=== PATIENT | female | born 1950 | race Caucasian/White ===

== ENCOUNTER 2017-12-09 01:31 | Inpatient (IN) | payer OTHER, MEDICARE ==
[~2017-12-09] VITALS: Ht 144.8 cm; Wt 113.9 kg
[~2017-12-09 01:31] MED LIST: ARTIFICIAL TEA1 EACH; BISCOLAX10 M1; CALCIUM + VITA1 EAC1; DULCOLAX5 M1; FERROUS SULFAT325 M3 PO; FEXMID7.5 MG PO; FIBERCON625 M1; FLEET ENEMA133 ML RC; FUROSEMIDE20 M1 PO; HYDROCODON-ACE1 EAC2 PO; KLOR-CON 1010 ME1 PO; LEVOTHYROXINE75 MCG PO; LINZESS145 MC1 PO; LISINOPRIL5 M1 PO; LOVENOX40 MG/0.1 SC; LYRICA50 M1 PO; MECLIZINE HCL25 MG; MILK OF MA400 MG/52 PO; MULTIVITAMINS1 EAC8; NALTREXONE HCL50 M1 PO; OMEGA 3-6-9 11200 MG; OXYMORPHONE HCL10 MG PO; PAXIL30 M1 PO; RANITIDINE HCL300 M1 PO; SENNA8.6 M3; TRAZODONE HCL50 M1 PO; TYLENOL325 M1; VITAMIN D31000 UNI2 PO; VOLTAREN100 GM
[2017-12-09 07:30] LABS: ABSOLUTE BASOPHIL COUNT 0.1 /CUMM (0.0-0.2); ABSOLUTE EOSINOPHIL COUNT 0.4 /CUMM (0.0-0.7); ABSOLUTE GRANULOCYTE CT 5.1 /CUMM (1.4-6.5); ABSOLUTE LYMPH COUNT 1.8 /CUMM (1.2-3.4); ABSOLUTE MONOCYTE COUNT 0.5 /CUMM (0.10-0.60); BASOPHIL % 0.7 % (0.0-2.0); EOSINOPHIL % 4.9 % (0-5); HEMATOCRIT 38.8 % (37-47); MEAN CORPUSCULAR HGB 28.3 PG (27.0-31.0); MEAN CORPUSCULAR HGB CONC 33.2 G/DL (33.0-37.0); MEAN CORPUSCULAR VOLUME 85.3 FL (81.0-99.0); MEAN PLATELET VOLUME 7.8 FL (7.4-10.4); PLATELET COUNT 269 /CUMM (130-400); RBC DISTRIBUTION WIDTH 14.2 % (11.5-14.5); RED BLOOD CELL CT 4.55 /CUMM (4.20-5.40); WHITE BLOOD CELL COUNT 7.9 /CUMM (4.8-10.8)
--- NOTE | 2017-12-09 07:42 | RADIOLOGY REPORT ---
EXAMINATION: XR PORTABLE CHEST CLINICAL INFORMATION: Preoperative bariatric surgery COMPARISON: 04/06/2014 TECHNIQUE: Portable frontal view of the chest was obtained. FINDINGS: Improved lung volumes. No focal consolidation or mass. Normal pulmonary vascularity. No pleural effusion or pneumothorax. Normal heart size. Regional skeleton intact. IMPRESSION: No acute pulmonary disease.
--- NOTE | 2017-12-09 12:05 | Operative Report ---
Operative/Inv Procedure Report Surgery Date: 12/09/17 Name of Procedure: Laparoscopic Sleeve Gastrectomy, Laparoscopic Hiatal hernia repair Pre-Operative Diagnosis: Morbid Obesity BMI-50, JOAN, HTN, Oseoarthritis, Depression, Hypothyroid Post-Operative Diagnosis: Morbid Obesity BMI-50, JOAN, HTN, Oseoarthritis, Depression, Hypothyroid, Hiatal hernia Estimated Blood Loss: less than 50ml Surgeon/Game Technician: Eduardo Swanson DO Anesthesia: general endotracheal tube IV Fluids: 1000 cc Drains: None Specimens: Stomach Complications: None Condition: Stable Operative Indication: This is a 67-year-old female that presented to the office for workup for bariatric surgery. After appropriate workup was completed I discussed with the patient the band, the sleeve, and the gastric bypass. The patient chose to undergo a sleeve gastrectomy. All risks including but not limited to bleeding, infection, leak, stricture, injury to surrounding bowel/esophagus/stomach/liver/ spleen, long-term reflux, DVT/PE, and mortality of 08/999 patients were discussed in detail. The patient understood everything and decided to proceed. Operative/Procedure Note Note: The patient was brought to the operating room and placed on the operating room table in supine position. Venodyne stockings were placed and adequate general endotracheal anesthesia was obtained. The patient was prepped and draped in standard surgical fashion. Began the procedure by making a 2 cm transverse incision supraumbilically and slightly to the left of the midline. Then using a 12 mm clear Visiport and a 10 mm 0 laparoscope, the abdominal cavity was accessed. Great care was taken to go through the anterior rectus sheath, the posterior rectus sheath, and through the peritoneum. Once we entered the peritoneum the abdominal cavity was insufflated to 15 mmHg. Upon initial examination some midline adhesions were noted from prior open cholecystectomy. 5 mm port was placed in left lateral position, and then all the midline adhesions were taken down using Harmonic scalpel maintaining hemostasis until there was adequate room for subsequent port placement. Accessory trocars were placed, 5 mm in the epigastrium for the Henna liver retractor. The retractor was inserted and the liver was retracted anteriorly exposing the hiatus, small hiatal hernia was seen. 5 mm ports were placed in the right and left upper quadrant, and a 15 mm right lateral port. Began the procedure by mobilizing the greater curvature of the stomach approximately 7 cm from the pylorus. Once the retrogastric space was reached the whole greater curvature was mobilized maintaining hemostasis using Harmonic scalpel. Full hiatal dissection was performed, a small hiatal hernia was seen (fatty tissue was herniating posteriorly. The left zora of the diaphragm was dissected away from the esophagus, reducing the hernia sac. We then brought our attention to the right zora, the pars flaccida was opened until the right zora was clearly visualized. Following this the right zora was dissected away from the esophagus as well and the esophagus was circumferentially dissected out of the chest. At the completion of dissection the esophagus was in the abdominal cavity for about 2-3 cm. The esophagus was retracted anteriorly and the hiatus was closed using 2-0 Tycron suture. At the completion of the closure there was ample room for the esophagus and the hiatus was adequately closed. Posterior adhesions were taken down using Harmonic scalpel as well. Once the stomach was adequately mobilized a 38 Uzbek bougie was inserted and placed along the lesser curvature of the stomach. Once the bougie was in the appropriate position will began creating our sleeve, two 60 mm black staple loads with seamguard followed by two 60 mm purple staple loads with seamguard as well, and finished with a 45 mm plain purple load. Great care was taken to leave ample room at the incisura angularis, to prevent any twisting or kinking of the sleeve, to stay lateral to the esophagogastric fat pad, and to do a full fundal excision. At the completion of the staple line the staple line was examined, it appeared intact and no obvious bleeding was noted. The bougie was removed, the sleeve was lying nicely without any twisting or kinking. The resected stomach was removed through the right lateral port site. The port and the left upper quadrant were irrigated until clear. All ports were removed under direct visualization no obvious bleeding was noted. The 15 mm port site fascia was closed using 0 Vicryl suture. The skin was closed using 4-0 Monocryl. Steri-Strips and dressings were placed. The patient was successfully extubated and transferred to the recovery room in stable condition. The patient tolerated the procedure well with no complications. Findings: 2-3 cm hiatal hernia, 38 Fr bougie CC: Rashawn Gomez MD
--- NOTE | 2017-12-09 12:18 | Admission Core Measures ---
Acute Coronary Syndrome (CM) ACS Core Measures Acute Coronary Syndrome Diagnosis No Congestive Heart Failure (NEW) CHF Core Measures Congestive Heart Failure Diagnosis No Cerebrovascular Accident (NEW) CVA Core Measures CVA/TIA Diagnosis No Venous Thromboembolism VTE Core Jamila (View Protocol) VTE Risk Factors Surgery No Mechanical VTE Prophylaxis d/t N/A MechProphylax Ordered No VTE Pharm Prophylaxis d/t NA PharmProphylax ordered Problem List As ranked by this Provider includes Assessment & Plan 1. History of repair of hiatal hernia 2. S/P laparoscopic sleeve gastrectomy 3. Lupus 4. Hypothyroidism 5. GERD (gastroesophageal reflux disease) 6. Hypertension 7. Morbid obesity HOME MEDS Home Med List Cholecalciferol (Vitamin D3) 1,000 UNIT TABLET 5 TAB PO DAILY SUPPLEMENT ( Reported) Cyclobenzaprine HCl (Fexmid) 7.5 MG TABLET 1 TAB PO BID PAIN (Reported) Enoxaparin Sodium (Lovenox) 40 MG/0.4 ML SYRINGE 0.4 ML SC DAILY ANTICOAGULATION (Reported) Ferrous Sulfate 325 MG (65 MG IRON) TABLET 1 TAB PO DAILY SUPPLEMENT ( Reported) Furosemide 20 MG TABLET 1 TAB PO DAILY DIURETIC (Reported) Hydrocodone/Acetaminophen (Hydrocodon-Acetaminophen 5-325) 5 MG-325 MG TABLET 1-2 TAB PO Q4-6 PRN PRN PAIN (Reported) Levothyroxine Sodium 75 MCG TABLET 1 TAB PO DAILY REPLACEMENT (Reported) Linaclotide (Linzess) 145 MCG CAPSULE 1 CAP PO DAILY CONSTIPATION (Reported) Lisinopril 5 MG TABLET 1 TAB PO DAILY HTN (Reported) Magnesium Hydroxide (Milk Of Magnesia) 400 MG/5 ML ORAL.SUSP 5 ML PO DAILY PREOP LAXATIVE (Reported) Na Phos,M-B/Na Phos,Di-Ba (Fleet Enema) 19 GRAM-7 GRAM/118 ML ENEMA 1 E RC ONCE CONSTIPATION (Reported) Naltrexone HCl 50 MG TABLET 1 TAB PO DAILY RESPIRATORY DEPRESSION (Reported) Oxymorphone HCl (Oxymorphone HCl ER) 10 MG TAB.ER.12H 1 TAB PO BID PAIN ( Reported) Paroxetine HCl (Paxil) 30 MG TABLET 1 TAB PO DAILY DEPRESSION (Reported) Potassium Chloride (Klor-Con 10) 10 MEQ TABLET.ER 1 TAB PO DAILY SUPPLEMENT ( Reported) Pregabalin (Lyrica) 50 MG CAPSULE 1 CAP PO TID LUPUS (Reported) Ranitidine HCl 300 MG TABLET 1 TAB PO QPM GERD (Reported) Trazodone HCl 50 MG TABLET 0.5 TAB PO QPM SLEEP (Reported)
--- NOTE | 2017-12-09 12:24 | Surg Short-stay <48hrs Dis Sum ---
Visit Information Visit Dates Admission Date: 12/09/17 Discharge Date: 12/11/17 Surgical Short Stay DC Summary Admission Diagnosis: Morbid Obesity BMI-50, JOAN, HTN, Oseoarthritis, Depression, Hypothyroid Final Diagnosis: Morbid Obesity BMI-50, JOAN, HTN, Oseoarthritis, Depression, Hypothyroid, Hiatal hernia Procedure(s): Surgery Date: 12/09/17 Name of Procedure: Laparoscopic Sleeve Gastrectomy, Laparoscopic Hiatal hernia repair Summary/Significant Findings: Electively scheduled laparoscopic sleeve gastrectomy, laparoscopic hiatal hernia repair on 12/09/17 by for history of morbid obesity (BMI-50), JOAN, HTN , Oseoarthritis, Depression, Hypothyroid, and hiatal hernia appreciated during surgery. Started on a stage 1 bariatric diet post-operatively. Upper gi study on POD#1 to rule out leak and obstruction. Pain control transitioned from iv to oral medication as able. Lovenox teaching done prior to [facility], which should be continued for one week post-op. Her lisinopril has been held intentionally, with recommendations to follow up with her PCP for blood pressure check. Her lasix can be continued, but may eventually be stopped. Protonix will be continued for 3 months following surgery, and may then be stopped. She will likely not require ranitidine while she has been started on a PPI, and given her symptoms will likely resolved post-sleeve / hiatal hernia repair. Condition at Discharge: stable Discharge Disposition: home or self care Discharge instructions provided to patient/family: Yes Post discharge follow-up plan: one week follow up with lovenox teaching done prior to discharge home Copies to: Rashawn Gomez MD
--- NOTE | 2017-12-09 12:29 | Patient Discharge Instructions ---
Discharge Instructions General Discharge Information You were seen/treated for: Morbid Obesity BMI-50, JOAN, HTN, Oseoarthritis, Depression, Hypothyroid, Hiatal hernia You had these procedures: Surgery Date: 12/09/17 Name of Procedure: Laparoscopic Sleeve Gastrectomy, Laparoscopic Hiatal hernia repair Watch for these problems: fever>101.3, increased pain, redness/swelling/drainage, dizziness, shortness of breath, chest pains, dizziness No bath, but you may shower: Yes Other wound care: ok to remove outer dressings. leave white steri strips in place. keep incisions clean & dry. Diet Continue normal diet: Yes Recommended Diet: Bariatric Additional DIET Information: weekly bariatric stage diet advancements as tolerated, as directed Activity Full Activity/No Limits: No Activity Self Limited: Yes Pounds, do NOT lift more than: 10 Other activity limits: no heavy lifting>10 lbs. no strenuous activity. Acute Coronary Syndrome Inclusion Criteria At DC or during hospital stay patient has or had the following: ACS DIAGNOSIS No Discharge Core Measures Meds if any: Prescribed or Continued at Discharge Meds if any: NOT Prescribed or Continued at Discharge Congestive Heart Failure Inclusion Criteria At DC or during hospital stay patient has or had the following: CHF DIAGNOSIS No Discharge Core Measures Meds if any: Prescribed or Continued at Discharge Meds if any: NOT Prescribed or Continued at Discharge Cerebrovascular accident Inclusion Criteria At DC or during hospital stay patient has or had the following: CVA/TIA Diagnosis No Discharge Core Measures Meds if any: Prescribed or Continued at Discharge Meds if any: NOT Prescribed or Continued at Discharge Venous thromboembolism Inclusion Criteria VTE Diagnosis No VTE Type NONE VTE Confirmed by (Test) NONE Discharge Core Measures - Per Current guidelines, there needs to be overlap - treatment for the first 5 days of Warfarin therapy. - If discharged on Warfarin prior to 5 days of - overlap therapy, the patient will need to be - assessed for post discharge needs including - *Post discharge parental anticoagulation - *Warfarin and/or parental anticoagulation education - *Follow up date to check INR post discharge At least 5 days overlap therapy as Inpatient No Meds if any: Prescribed or Continued at Discharge Note: Overlap Therapy is Warfarin and Anticoagulant Meds if any: NOT Prescribed or Continued at Discharge
--- NOTE | 2017-12-09 16:26 | PN- Bariatrics ---
Subjective Subjective: POC gas pain. no n/v. no oob as she is in an electric wc at baseline due to arthritis. no sob. +void. no po yet Objective Vital Signs and I&Os see emr Physical Exam: gen- nad card- s1s2 rrr pulm- ctab abd- incisions dressed, cdi. upper abd ttp at incisions. obese, soft, nd. ext- obese, calves soft nt, alps on. Assessment/Plan Assessment/Plan A- POD0 sp lap sleeve gastrectomy with hh repair, due to MO BMI>50, HH, JOAN, HTN , os, dep, hypothyroid, no oob as pt states she is unable to ambulate at baseline and uses electric wheelchair, with appropriate postop pain, otherwise stable. P- oob- pt eval. prn pain meds, gas meds home meds- hold lasix & lisinopril tuan stg 1 diet now, then npo p pm. possible ugi study in am, tbd ancef [id number] postop hep sq, alps lovenox teaching for home dc planning will dw attending Core Measures Venous Thromboembolism VTE Risk Factors Surgery No Mechanical VTE Prophylaxis d/t N/A MechProphylax Ordered No VTE Pharm Prophylaxis d/t NA PharmProphylax ordered
[2017-12-09 17:00] VITALS: BP 110/58
[2017-12-09 21:17] VITALS: BP 120/58
[2017-12-10 06:08] VITALS: BP 114/62
[2017-12-10 08:17] LABS: ABSOLUTE BASOPHIL COUNT 0 /CUMM (0.0-0.2); ABSOLUTE EOSINOPHIL COUNT 0 /CUMM (0.0-0.7); ABSOLUTE GRANULOCYTE CT 8.4 /CUMM (1.4-6.5); ABSOLUTE LYMPH COUNT 1.7 /CUMM (1.2-3.4); ABSOLUTE MONOCYTE COUNT 0.9 /CUMM (0.10-0.60); BASOPHIL % 0.2 % (0.0-2.0); EOSINOPHIL % 0.1 % (0-5); GRANULOCYTE % 76.7 % (42.2-75.2); HEMATOCRIT 34.1 % (37-47); MEAN CORPUSCULAR HGB 28.6 PG (27.0-31.0); MEAN CORPUSCULAR HGB CONC 33.5 G/DL (33.0-37.0); MEAN CORPUSCULAR VOLUME 85.5 FL (81.0-99.0); MEAN PLATELET VOLUME 8.8 FL (7.4-10.4); PLATELET COUNT 270 /CUMM (130-400); RBC DISTRIBUTION WIDTH 14.2 % (11.5-14.5); RED BLOOD CELL CT 3.99 /CUMM (4.20-5.40); WHITE BLOOD CELL COUNT 10.9 /CUMM (4.8-10.8)
--- NOTE | 2017-12-10 10:48 | PN- Bariatrics ---
See Addendum Subjective Subjective: Patient reports nausea with clears last night and one episode of heme-postive emesis after she returned from UGI study. Pain is currently controlled. Reports passing flatus. Denies having a BM since thursday. Is requesting a fleet enema. Has a bed waiting for her to return at [facility] per PT once stable for discharge. Objective Vital Signs and I&Os Vital Signs Date Time Temp Pulse Resp B/P B/P Pulse O2 O2 Flow FiO2 Mean Ox Delivery Rate 12/10 0508 98.2 62 22 114/62 100 Nasal 1.5L Cannula 12/10 0600 98 Nasal 2.0L Cannula 12/10 0048 98 CPAP 2.0L 12/10 0000 98 Nasal 2.0L Cannula 12/10 0000 98 Nasal 2.0L Cannula 12/09 2200 CPAP 12/09 2117 98.5 80 20 120/58 98 Room Air 12/09 2104 Room Air Room Air 12/09 1800 96 Room Air 12/09 1700 98.1 76 20 110/58 97 Room Air 12/09 1625 98 Room Air Intake & Output 12/10 1600 12/10 0800 12/10 0000 12/09 1600 12/09 0800 12/09 0000 Intake Total 765 980 Output Total 900 Balance 765 80 Intake, IV 750 620 Intake, Oral 15 360 Output, Urine 900 Patient 252 lb 240 lb Weight Weight Bed scale Reported by Patient Measurement Method Physical Exam: Gen - awake an alert in nad Cardiac - S1S2 noted Lungs - CTAB Abd - soft, obese, 6 lap sites noted, c/d/i, bowel sounds normoactive, appropriately tender adrian-incisionally, no rebound or guarding noted Ext - alps in place, no edema or calf tenderness B/L Current Medications: Current Medications Sig/David Start time Last Medication Dose Route Stop Time Status Admin Acetaminophen 1,000 MG Q6 12/09 1800 AC 12/10 N/A 1 UNIT IV 12/10 1214 0523 Artificial Tears 2 GTT TID PRN 12/09 1215 AC OPH Cefazolin Sodium 2,000 MG IQ8 12/09 1800 CAN IV 12/10 0001 Cefazolin Sodium 2 GM Q8H 12/09 1800 DC 12/10 N/A 1 UNIT IV 12/10 0229 0201 Cyclobenzaprine HCl 7.5 MG BID 12/09 2200 AC 12/09 PO 2246 Dexamethasone 8 MG ONCE PRN 12/09 1630 AC IV PUSH Dextrose/Sodium 1,000 ML Q10H 12/09 1630 AC 12/10 Chloride IV 0211 Diclofenac Sodium 1 HAMZAH 4 TIMES/DAY PRN 12/09 1215 AC TOP Heparin Sodium 5,000 UNIT Q8 12/09 2200 AC 12/10 (Porcine) SC 0523 Hydrocodone Bitart/ 15 ML Q6P PRN 12/09 1630 AC 12/10 Acetaminophen PO 0209 Levothyroxine Sodium 0.075 MG DAILY AC 12/10 0700 AC 12/10 PO 0523 Morphine Sulfate 2 MG Q4-6 PRN PRN 12/09 1630 AC 12/10 IV 0019 Ondansetron HCl 4 MG Q6P PRN 12/10 0930 AC 12/10 IV 0935 Ondansetron HCl 4 MG .STK-MED ONE 12/09 1328 DC IM 12/09 1329 Oxycodone HCl 20 MG Q12 12/09 2200 AC 12/10 PO 0935 Pantoprazole Sodium 40 MG DAILY 12/10 1000 AC IV Pregabalin 50 MG TID 12/09 1600 AC 12/10 PO 0935 Simethicone 40 MG Q4P PRN 12/10 0930 AC PO Trazodone HCl 25 MG AT BEDTIME PRN 12/09 1215 AC PO Results Last 48 Hours of Labs: Laboratory Tests 12/10 12/09 0610 0715 Chemistry Sodium (137 - 145 mmol/L) 140 140 Potassium (3.5 - 5.1 mmol/L) 3.7 4.1 Chloride (98 - 107 mmol/L) 102 100 Carbon Dioxide (22 - 30 mmol/L) 28 29 Anion Gap (5 - 16) 10 11 BUN (7 - 17 mg/dL) 11 13 Creatinine (0.5 - 1.0 mg/dL) 0.4 L 0.4 L Estimated GFR (>60 ml/min) > 60 > 60 BUN/Creatinine Ratio (7 - 25 %) 27.5 H 32.5 H Glucose (65 - 99 mg/dL) 129 H 74 Calcium (8.4 - 10.2 mg/dL) 9.1 Magnesium (1.6 - 2.3 mg/dL) 2.0 Hematology CBC w Diff NO MAN DIFF REQ NO MAN DIFF REQ WBC (4.8 - 10.8 /CUMM) 10.9 H 7.9 RBC (4.20 - 5.40 /CUMM) 3.99 L 4.55 Hgb (12.0 - 16.0 G/DL) 11.4 L 12.9 Hct (37 - 47 %) 34.1 L 38.8 MCV (81.0 - 99.0 FL) 85.5 85.3 MCH (27.0 - 31.0 PG) 28.6 28.3 MCHC (33.0 - 37.0 G/DL) 33.5 33.2 RDW (11.5 - 14.5 %) 14.2 14.2 Plt Count (130 - 400 /CUMM) 270 269 MPV (7.4 - 10.4 FL) 8.8 7.8 Gran % (42.2 - 75.2 %) 76.7 H 65.0 Lymphocytes % (20.5 - 51.1 %) 15.2 L 22.4 Monocytes % (1.7 - 9.3 %) 7.8 7.0 Eosinophils % (0 - 5 %) 0.1 4.9 Basophils % (0.0 - 2.0 %) 0.2 0.7 Absolute Granulocytes (1.4 - 6.5 /CUMM) 8.4 H 5.1 Absolute Lymphocytes (1.2 - 3.4 /CUMM) 1.7 1.8 Absolute Monocytes (0.10 - 0.60 /CUMM) 0.9 H 0.5 Absolute Eosinophils (0.0 - 0.7 /CUMM) 0 0.4 Absolute Basophils (0.0 - 0.2 /CUMM) 0 0.1 Assessment/Plan Assessment/Plan 67 nonambulatory, wheel-chair bound female who is POD 1 s/p lap sleeve gastrectomy with hh repair with nausea, one episode of blood tinged emesis, which was heme postive, expected postoperatively Keep NPO, IVF Await UGI Pain/antiemetics prn Cont to hold lisinprol and lasix DVT ppx - alps, hsq Lovenox teaching for home Fleet enema ordered [facility]48 [facility] Will d/w Dr. Swanson Core Measures Venous Thromboembolism VTE Risk Factors Surgery No Mechanical VTE Prophylaxis d/t N/A MechProphylax Ordered No VTE Pharm Prophylaxis d/t NA PharmProphylax ordered
--- NOTE | 2017-12-10 12:26 | RADIOLOGY REPORT ---
EXAMINATION: FLUOROSCOPY UPPER GI WITH GASTROGRAFIN WITH KUB CLINICAL INFORMATION: 1 day status post sleeve gastrectomy and hiatal hernia repair. Postoperative evaluation. Rule out leak/obstruction. COMPARISON: None. TECHNIQUE: A preliminary robot programmer view of the abdomen was performed. A limited Gastrografin upper GI study was performed using 30 ml of Gastroview with the patient in the semiupright position. Multiple (6) spot films and 2 cine fluoroscopy runs were acquired. FINDINGS: The preliminary robot programmer view of the abdomen demonstrates postsurgical suture line in the epigastric region. Normal bowel gas pattern is seen without abnormal bowel distention noted. Right upper quadrant jaja are in place from prior cholecystectomy. Moderate degenerative changes are seen throughout the thoracolumbar spine. Esophageal distensibility and motility is suboptimally assessed, since the patient was only able to swallow the contrast in small sips rather than as a continuous oral bolus. The GE junction is located below the level of the diaphragm and no GE reflux seen. The remnant gastric pouch is normal with no abnormal distention or contrast leak seen. There is prompt emptying of contrast into the duodenum. There is a small duodenal diverticulum seen arising from the proximal first portion of the duodenal C-sweep. The duodenum is otherwise unremarkable in appearance. FLUOROSCOPY TIME: 1.6 minutes. IMPRESSION: 1. Esophageal distensibility and motility not adequately assessed. 2. No evidence of contrast leak or gastric outlet obstruction status post gastric sleeve procedure. 3. Small duodenal diverticulum seen arising from the proximal portion of the first portion of the duodenal C-sweep.
[2017-12-10 14:43] VITALS: BP 100/62
[2017-12-10 21:22] VITALS: BP 136/66
[2017-12-11 06:07] VITALS: BP 132/64
--- NOTE | 2017-12-11 07:25 | PN- Bariatrics ---
Subjective Subjective: Reports some ongoing nausea, but tolerating stage 1 diet. Passing flatus. Wheelchair bound at baseline. She hasn't been out of bed. Denies dizziness. No shortness of breath. No chest pains. "I'm tired". Objective Vital Signs and I&Os Vital Signs Date Time Temp Pulse Resp B/P B/P Pulse O2 O2 Flow FiO2 Mean Ox Delivery Rate 12/11 0607 98.1 55 20 132/64 94 Nasal 2.0L Cannula 12/11 06 CPAP 12/10 2199 Room Air 12/10 2122 97.7 61 19 136/66 95 Room Air 12/10 1600 94 Room Air 12/10 1443 97.4 61 20 100/62 94 12/10 1400 94 Room Air Intake & Output 12/11 0800 12/11 0000 12/10 1600 12/10 0800 12/10 0000 12/09 1600 Intake Total 4830 929 4453 765 980 Output Total 575 500 300 900 Balance 465 40 990 765 80 Intake, IV 800 300 810 750 620 Intake, Oral 240 240 480 15 360 Number 2 1 Bowel Movements Output, Urine 575 500 300 900 Patient 251 lb 252 lb 240 lb Weight Weight Bed scale Reported by Patient Measurement Method Physical Exam: General - alert & oriented. comfortable. no acute distress. Lungs - clear bilaterally. no w/r/r. Cardiac - s1s2. reg. Abdomen - morbidly obese. dressings c/d/i. no drains. expected adrian-incisional tenderness. Extremities - warm bilaterally. no c/c/e. calves soft and nontender b/l. Current Medications: Current Medications Sig/David Start time Last Medication Dose Route Stop Time Status Admin Acetaminophen 1,000 MG Q6 12/09 1800 DC 12/10 N/A 1 UNIT IV 12/10 1214 1206 Artificial Tears 2 GTT TID PRN 12/09 1215 AC OPH Cyclobenzaprine HCl 7.5 MG BID 12/09 2200 AC 12/10 PO 2041 Dexamethasone 8 MG ONCE PRN 12/09 1630 AC IV PUSH Dextrose/Sodium 1,000 ML Q10H 12/09 1630 AC 12/11 Chloride IV 0627 Diclofenac Sodium 1 HAMZAH 4 TIMES/DAY PRN 12/09 1215 AC TOP Heparin Sodium 5,000 UNIT Q8 12/09 2199 AC 12/11 (Porcine) SC 0524 Hydrocodone Bitart/ 15 ML Q6P PRN 12/09 1630 AC 12/10 Acetaminophen PO 0209 Levothyroxine Sodium 0.075 MG DAILY AC 12/10 0700 AC 12/11 PO 0524 Morphine Sulfate 2 MG Q4-6 PRN PRN 12/09 1630 AC 12/11 IV 0306 Ondansetron HCl 4 MG Q6P PRN 12/10 0930 AC 12/11 IV 0306 Oxycodone HCl 20 MG Q12 12/09 2200 AC 12/10 PO 204 Pantoprazole Sodium 40 MG DAILY 12/10 1000 AC IV Pregabalin 50 MG TID 12/09 1600 AC 12/10 PO 2041 Simethicone 40 MG Q4P PRN 12/10 0930 AC PO Sodium Phosphate 1 UNIT ONCE ONE 12/10 1200 DC 12/10 PA 12/10 1201 1404 Trazodone HCl 25 MG AT BEDTIME PRN 12/09 1215 AC PO Results Last 48 Hours of Labs: Laboratory Tests 12/10 0610 Chemistry Sodium (137 - 145 mmol/L) 140 Potassium (3.5 - 5.1 mmol/L) 3.7 Chloride (98 - 107 mmol/L) 102 Carbon Dioxide (22 - 30 mmol/L) 28 Anion Gap (5 - 16) 10 BUN (7 - 17 mg/dL) 11 Creatinine (0.5 - 1.0 mg/dL) 0.4 L Estimated GFR (>60 ml/min) > 60 BUN/Creatinine Ratio (7 - 25 %) 27.5 H Glucose (65 - 99 mg/dL) 129 H Magnesium (1.6 - 2.3 mg/dL) 2.0 Hematology CBC w Diff NO MAN DIFF REQ WBC (4.8 - 10.8 /CUMM) 10.9 H RBC (4.20 - 5.40 /CUMM) 3.99 L Hgb (12.0 - 16.0 G/DL) 11.4 L Hct (37 - 47 %) 34.1 L MCV (81.0 - 99.0 FL) 85.5 MCH (27.0 - 31.0 PG) 28.6 MCHC (33.0 - 37.0 G/DL) 33.5 RDW (11.5 - 14.5 %) 14.2 Plt Count (130 - 400 /CUMM) 270 MPV (7.4 - 10.4 FL) 8.8 Gran % (42.2 - 75.2 %) 76.7 H Lymphocytes % (20.5 - 51.1 %) 15.2 L Monocytes % (1.7 - 9.3 %) 7.8 Eosinophils % (0 - 5 %) 0.1 Basophils % (0.0 - 2.0 %) 0.2 Absolute Granulocytes (1.4 - 6.5 /CUMM) 8.4 H Absolute Lymphocytes (1.2 - 3.4 /CUMM) 1.7 Absolute Monocytes (0.10 - 0.60 /CUMM) 0.9 H Absolute Eosinophils (0.0 - 0.7 /CUMM) 0 Absolute Basophils (0.0 - 0.2 /CUMM) 0 Assessment/Plan Assessment/Plan This 67 year old female with hx lupus, htn, hypothyroidism, who is wheelchair bound at baseline, is POD#2 s/p lap sleeve gastrectomy with hh repair, with ongoing nausea but tolerating stage 1 diet stage 1 diet ugi negative for leak / obstruction yesterday pain controlled lovenox - dvt ppx, teaching for home ?PT eval anticipate d/c back to [facility] today vs tomorrow will d/w Dr. Swanson Core Measures Venous Thromboembolism VTE Risk Factors Surgery No Mechanical VTE Prophylaxis d/t N/A MechProphylax Ordered No VTE Pharm Prophylaxis d/t NA PharmProphylax ordered
[2017-12-11] MEDS ORDERED: PROTONIX40 M3 PO (07:35)
[2017-12-11] MEDS ORDERED: HYDROCODON-ACET15 ML PO (07:35)
[2017-12-11] MEDS ORDERED: ZOFRAN4 M2 PO (07:40)
[2017-12-11] MEDS ORDERED: NYAMYC15 GM TOP (12:49)
[2017-12-11 14:19] VITALS: BP 132/64
[2017-12-11 14:23] VITALS: BP 130/68
== END 2017-12-11 14:55 | DRG 621 ==
LOC: SDA 01:31 → 2NB 01:31 → ENRESERV 14:39 → ENTRNSPT 14:56 → EDTRNSPT 14:59 → EDTRNSPTSTS 14:59 → CMPTRNSPT 15:11 → ENTRNSPT 15:49 → EDTRNSPTSTS 15:52 → 2NB 15:59 → CMPTRNSPT 16:22 → ENPENDDIS 12-11 07:47 → 2NB 12-11 14:55
PROVIDERS: Physician Assistant; Surgery
PROC: 0DB64Z3 Excision of Stomach, Percutaneous Endoscopic Approach, Vertical (ICD-10-PCS; principal; 2017-12-09)
PROC: 0BQT4ZZ Repair Diaphragm, Percutaneous Endoscopic Approach (ICD-10-PCS; 2017-12-09)
DX: E66.01 Morbid (severe) obesity due to excess calories (principal); M32.9 Systemic lupus erythematosus, unspecified; I10 Essential (primary) hypertension; Z68.43 Body mass index [BMI] 50.0-59.9, adult; K44.9 Diaphragmatic hernia without obstruction or gangrene; E03.9 Hypothyroidism, unspecified; K21.9 Gastro-esophageal reflux disease without esophagitis; F32.9 Major depressive disorder, single episode, unspecified; G47.33 Obstructive sleep apnea (adult) (pediatric); M19.90 Unspecified osteoarthritis, unspecified site; Z79.01 Long term (current) use of anticoagulants; Z79.891 Long term (current) use of opiate analgesic; G89.29 Other chronic pain; F41.9 Anxiety disorder, unspecified; M06.9 Rheumatoid arthritis, unspecified; R42 Dizziness and giddiness
CPT/HCPCS: 36592; 71045; 74240; 82436; 88307; J0131; J0690; J1100; J1644; J1650; J2405; J7042